=== PATIENT | female | born 1970 | race Caucasian/White ===

== ENCOUNTER → 2016-12-21 | Outpatient (CLI) | payer BC ==
--- NOTE | 2016-12-21 19:44 | RAD ---
Left wrist three views Indication: Left wrist pain. No trauma. Findings: There is no cortical lucency or malalignment. Joint spaces are normal. Impression: No acute left wrist osseous abnormality. Reported By:
--- NOTE | 2016-12-22 08:03 | RAD ---
Right knee-three views Indication: Right knee pain. No trauma. Findings: There is no cortical lucency or malalignment. There is enthesopathy of the patella. There is mild multi compartment degenerative change. Impression: Mild degenerative change without acute osseous abnormality. Joint space narrowing most p ronounced medially. Reported By:
== END ==
LOC: RAD 16:20
PROVIDERS: ATTEND Family Medicine
DX: M25.532 Pain in left wrist (principal); M25.561 Pain in right knee
CPT/HCPCS: 73100; 73560